=== PATIENT | male | born 1980 | race Caucasian/White ===

== ENCOUNTER 2017-11-15 09:14 | Emergency (ER) | payer OTHER ==
[~2017-11-15 09:14] MED LIST: ATORVASTATIN CA80 M1 PO; GUAIFENESIN-COD10 ML PO; LISINOPRIL20 M1 PO; MEDROL4 M2 PO; TESSALON PERLE100 M1 PO; VENTOLIN HFA18 GM INH; ZITHROMAX500 M2 PO
--- NOTE | 2017-11-15 10:34 | RADIOLOGY REPORT ---
EXAMINATION: XR CHEST CLINICAL INFORMATION: Cough, fever. COMPARISON: 05/24/2016 TECHNIQUE: 2 views of the chest were obtained. FINDINGS: Cardiac and mediastinal silhouette is within normal limits. Lungs are symmetrically expanded. There are no pleural effusions or pneumothorax. No focal consolidation. No acute osseous abnormality. IMPRESSION: No evidence of confluent consolidation.
--- NOTE | 2017-11-15 11:29 | ED INFLUENZA/URI COMPLAINT ---
History of Present Illness General Chief Complaint: Upper Respiratory Sx/Fever Stated Complaint: COUGHING, WHEEZING, FEVER X2 DAYS Source: patient, family Exam Limitations: no limitations Vital Signs & Intake/Output Vital Signs & Intake/Output ED Intake and Output 11/16 0000 11/15 1200 Intake Total 0 Output Total Balance 0 Intake, Oral 0 Allergies Coded Allergies: Sulfa (Sulfonamide Antibiotics) (05/24/16) Reconcile Medications Albuterol Sulfate (Proventil Hfa) 90 MCG HFA.AER.AD 2 PUF INH Q4 PRN wheezing Atorvastatin Calcium 80 MG TABLET 1 TAB PO DAILY CHOLESTEROL (Reported) Azithromycin (Zithromax) 250 MG TABLET 1 DP PO AD bronchitis 2 the first day followed by 1 for days 2-5 Lisinopril 20 MG TABLET 1 TAB PO DAILY HEART (Reported) Methylprednisolone. (Medrol) 4 MG TAB.DS.PK 1 DP PO AD bronchitis 6 on day 1 then reduce by one tablet daily until gone Triage Note: PT TO ED C/O COUGH SINCE SAT. STATES HE HAS WHEEZING AT TIMES AND INTERMITTENT FEVERS. Triage Nurses Notes Reviewed? yes Onset: Gradual Duration: day(s): Timing: recent history Severity: moderate HPI: 37YO MALE with hx of asthma, HTN presents to ED complaining of dry cough, wheezing, dyspnea at rest x 3 days. Patient has taken albuterol inhaler and antitussive without relief of his symptoms. Patient also reports Generalized weakness. Patient has had one episode of nonbloody diarrhea today. Also reports chest pain associated with cough only, no chest pain at rest. 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 Patient did get the flu shot this year. Patient also reports mild sore throat. Patient denies abdominal pain, rhinorrhea, tobacco use. (Sheela Nair) Past History Travel History Traveled to [place] past 21 day No Medical History Any Pertinent Medical History? see below for history Respiratory: asthma Surgical History Surgical History: non-contributory Psychosocial History What is your primary language Luxembourgish Tobacco Use: Never used Family History Hx Contributory? No (Sheela Nair) Review of Systems Review of Systems Constitutional: Reports: see HPI. EENTM: Reports: see HPI. Respiratory: Reports: see HPI. Cardiovascular: Reports: see HPI. GI: Reports: see HPI. Genitourinary: Reports: no symptoms. Musculoskeletal: Reports: no symptoms. Skin: Reports: no symptoms. Neurological/Psychological: Reports: no symptoms. Hematologic/Endocrine: Reports: no symptoms. Immunologic/Allergic: Reports: no symptoms. All Other Systems: Reviewed and Negative (Leslie TILLEY,Sheela Zaman) Physical Exam Physical Exam General Appearance: well developed/nourished, no apparent distress, alert, awake Head: atraumatic, normal appearance Eyes: Bilateral: normal appearance. Ears, Nose, Throat: normal ENT inspection, moist mucous membrane, hearing grossly normal, Tympanic normal, pharynx normal Neck: normal inspection, supple, full range of motion Respiratory: mild bilateral inspiratory wheezing, anterior chest wall tenderness Cardiovascular: regular rate/rhythm Gastrointestinal: normal bowel sounds, soft, non-tender, no organomegaly Back: normal inspection, normal range of motion Extremities: normal inspection, normal range of motion Neurologic/Psych: awake, alert, oriented x 3 Skin: intact, normal color, warm/dry Core Measures Sepsis Present: No Sepsis Focused Exam Completed? No (Sheela Nair) Progress Differential Diagnosis: influenza, otitis, pneumonia, pharyngitis, sinusitis Plan of Care: Orders Procedure Date/time Status RAPID VIRAL INFLUENZA A 11/15 0932 Complete Microbiology 11/15 1018 NASOPHARYN: Influenza Virus A & B Rapid Smear - COMP Rapid flu swab is negative, chest x-ray without evidence for acute pneumonia. Patient likely has bronchitis given his wheezing on physical exam and his symptoms. Has no chest pain on rest, only pain with cough, chest pain is reproducible on physical exam, low suspicion for cardiac etiology. Prescribed steroid course of antibiotics for his symptoms in addition to albuterol. Patient to follow-up with his primary care doctor this week he was given strict return precautions. Patient has stable vital signs, no acute distress, he is nontoxic appearing. Patient ambulate without difficulty here in the emergency department. The patient agrees with the plan of care. The patient was discussed with Dr. Del Toro who agrees with this plan. Diagnostic Imaging: Viewed by Me: Radiology Read. Discussed w/RAD: Radiology Read. CXR Impression: PATIENT: ANKUSH SANDOVAL JR PRESENT AGE: 37 PATIENT ACCOUNT NO: [id number] : 76 LOCATION: [facility] ORDERING PHYSICIAN: Sheela TILLEY SERVICE DATE: 11/15/17 EXAM TYPE: RAD - XRY-CHEST XRAY, TWO VIEWS EXAMINATION: XR CHEST CLINICAL INFORMATION: Cough, fever. COMPARISON: 05/24/2016 TECHNIQUE: 2 views of the chest were obtained. FINDINGS: Cardiac and mediastinal silhouette is within normal limits. Lungs are symmetrically expanded. There are no pleural effusions or pneumothorax. No focal consolidation. No acute osseous abnormality. IMPRESSION: No evidence of confluent consolidation. 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 <Electronically signed in Other Vendor System> SIGNED BY: Marty Garcia MD 11/15/17 1034 Initial ED EKG: sinus rhythm @86bpm, nonspecific ST changes Prior EKG: unchanged (04/18/12) (Leslie TILLEY,Sheela Zaman) Departure Departure Disposition: HOME OR SELF CARE Condition: Stable Clinical Impression Primary Impression: Bronchitis Referrals: Ney Cunningham MD (PCP/Family) Additional Instructions: Take full steroid pack. Take full course of antibiotics. Use albuterol inhaler as needed for wheezing or shortness of breath. Follow-up with your primary care doctor. Return with any worsening symptoms or concerns. Please note that there might be incidental findings in your evaluation that are unrelated to the current emergency department visit. Please notify your primary care doctor about this emergency department visit in order to obtain and review all of the testing performed so that these incidental findings can be monitored as needed. If you had an x-ray performed, please understand that some fractures may not be seen on the initial set of x-rays. If your symptoms persist you might need a repeat set of x-rays to check for such a fracture. If you had a laceration evaluated, please understand that foreign bodies such as glass or wood may not be visible to the naked eye or on plain x-rays. If the wound becomes red, swollen, increasingly more painful or if there is any drainage from the wound, please have it reevaluated by a physician for the possibility of a retained foreign body. If you're unable to follow up as outlined in the discharge instructions please return to the emergency department. Thank you for choosing the [facility] Emergency Department for your care. It was a pleasure to serve you today. Departure Forms: Customer Survey General Discharge Information Prescriptions: Current Visit Scripts Albuterol Sulfate (Proventil Hfa) 2 PUF INH Q4 PRN wheezing #1 INHAL Azithromycin (Zithromax) 1 DP PO AD #6 TAB 2 the first day followed by 1 for days 2-5 Methylprednisolone. (Medrol) 1 DP PO AD #1 DP 6 on day 1 then reduce by one tablet daily until gone (Leslie TILLEY,Sheela Zaman) PA/CONSULTING SALES MANAGER Co-Sign Statement Statement: ED Attending supervision documentation- I saw and evaluated the patient. I have also reviewed all the pertinent lab results and diagnostic results. I agree with the findings and the plan of care as documented in the PA's/CONSULTING SALES MANAGER's documentation. x I have reviewed the ED Record and agree with the PA's/CONSULTING SALES MANAGER's documentation. [] Additions or exceptions (if any) to the PAs/CONSULTING SALES MANAGER's note and plan are summarized below: [] (Katey PANDEY,Alvin)
[2017-11-15] MEDS ORDERED: ZITHROMAX250 M2 PO (12:08)
[2017-11-15] MEDS ORDERED: PROVENTIL HFA6.7 GM INH (12:08)
[2017-11-15] MEDS ORDERED: MEDROL4 M2 PO (12:08)
[2017-11-15 12:46] VITALS: BP 136/67
== END 2017-11-15 13:00 ==
LOC: ERH 09:14
DX: J40 Bronchitis, not specified as acute or chronic (principal); R06.00 Dyspnea, unspecified
CPT/HCPCS: 1263; 71046; 87804; 87804-59